=== PATIENT | female | born 1960 | race Caucasian/White ===

== ENCOUNTER → 2016-08-29 | Outpatient (CLI) | payer BC ==
--- NOTE | 2016-08-31 08:00 | Diagnostic Imaging Report ---
Bilateral screening mammogram. The current study was also evaluated with a Computer Aided Detection (CAD) system. INDICATION: Screening. No current complaints stated on the questionnaire. COMPARISON: 08/24/2015. FINDINGS: The breasts are composed of scattered fibroglandular densities. There is a 1-cm focal asymmetry with lobulated margins in the medial upper aspect of the right breast. The left breast demonstrates no change. Occasional benign-appearing calcifications are noted. IMPRESSION: Lobulated 1-cm focal asymmetry in the medial upper aspect of the right breast could be a cyst. Better evaluation with focal compression view and ultrasound is recommended. ACR BI-RADS Category 0: Incomplete. (Needs additional imaging evaluation). Result letter will be mailed to the patient. Note: At least 10% of breast cancer is not imaged by mammography. Dictated by: Dictated on workstation # [id number]
== END ==
LOC: RAD 10:46
PROVIDERS: ATTEND Obstetrics & Gynecology
DX: Z12.31 Encounter for screening mammogram for malignant neoplasm of breast (principal)
CPT/HCPCS: 77067

== ENCOUNTER → 2016-09-10 | Outpatient (CLI) | payer BC ==
--- NOTE | 2016-09-10 09:13 | Diagnostic Imaging Report ---
EXAMINATION: Right breast diagnostic mammography with a Computer Aided Detection (CAD) system. INDICATION: Focal asymmetry in the medial upper aspect of the right breast. FINDINGS: Focal compression view confirms a smoothly marginated lesion in the upper medial aspect of the right breast. It measures approximately 1 cm and its circumscribed borders are in favor of a benign etiology. IMPRESSION: An upper right breast slightly medial circumscribed nodule is seen. An ultrasound evaluation is pending. ACR BI-RADS Category 0: Incomplete. (Needs additional imaging evaluation). Result letter will be mailed to the patient. Note: At least 10% of breast cancer is not imaged by mammography. Dictated by: Dictated on workstation # [id number]
--- NOTE | 2016-09-10 09:18 | Diagnostic Imaging Report ---
Right breast ultrasound. INDICATION: Nodule in the upper medial aspect of the right breast. Findings: At 1 o'clock zone, 8 cm from the nipple there is a hypoechoic circumscribed nodule measuring 1 x 0.5 x 1 CM. No internal vascularity is demonstrated with color Doppler. There is no shadowing of significance. No through transmission however is seen. The lesion is wider than tall. No other lesions are noted in the upper outer quadrant. Impression: 1 cm hypoechoic lesion at the 1 o'clock zone 8 cm from the nipple, correlates with the mammographic findings. 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 An ultrasound guided biopsy to confirm could be performed. An acceptable alternative would be to do serial followup exams starting at 6 months interval with ultrasound. The findings and recommendations were discussed with the patient personally just before this dictation. BI-RADS 4A. ACR BI-RADS Category 4A: Low suspicion of malignancy. Result letter will be mailed to the patient. Note: At least 10% of breast cancer is not imaged by mammography. Report was faxed to office of Dr. Morfin by dede at 9:20am. Dictated by: Dictated on workstation # [id number]
== END ==
LOC: RAD 08:27
PROVIDERS: ATTEND Obstetrics & Gynecology
DX: R92.8 Other abnormal and inconclusive findings on diagnostic imaging of breast (principal)

== ENCOUNTER → 2016-09-13 | Outpatient (CLI) | payer BC ==
[~2016-09-13] VITALS: Ht 172.7 cm; Wt 81.6 kg
[~2016-09-13] MED LIST: LIDOCAINE 1% INJ 20 ML (XYLOCAINE) VIAL INJ ONE
[2016-09-13 13:04] VITALS: BP 138/84
--- NOTE | 2016-09-13 14:45 | Diagnostic Imaging Report ---
EXAMINATION: Vacuum-assisted ultrasound-guided biopsy of breast mass right breast nodule. A metallic clip placed to guzman biopsy site. INDICATION: Right breast mass. CONSENT: Informed consent was obtained from the patient. The risks, benefits, potential complications and alternatives were reviewed and all questions answered to the patient's satisfaction. FINDINGS: Ultrasound images demonstrate right breast mass. PROCEDURE: After sterile preparation and draping, 1% lidocaine was utilized for local anesthesia. A vacuum-assisted biopsy device with 14-gauge needle was introduced under live ultrasound guidance into the lesion. Good needle position was documented with ultrasound images. A metallic clip was placed to guzman the site of the biopsy. A subsequent mammogram is performed and confirms the proper positioning of the clip. Multiple samples were obtained and sent to pathology. The patient tolerated the procedure well with no immediate complications. IMPRESSION: Successful ultrasound-guided biopsy of right breast mass at 1:00 zone. A metallic clip placed to guzman biopsy site. Dictated by: Dictated on workstation # [id number]
--- NOTE | 2016-09-13 20:58 | Diagnostic Imaging Report ---
CC and lateral projections of a mammogram are performed in the right breast. INDICATION: Documentation of clip position after ultrasound-guided biopsy and correlating the ultrasound the mammographic findings. FINDINGS: There is matching abnormality indicated by the biopsy clip which projects less than a centimeter lateral to the medial right breast nodule seen by mammography with post biopsy changes immediately adjacent to the location of the nodule suggestive of slight lateral migration of the biopsy clip. IMPRESSION: The biopsy clip projects slightly lateral to the medial breast nodule of interest. Pathology results are pending. ACR BI-RADS Category 4A: Low suspicion of malignancy. Result letter will be mailed to the patient. Note: At least 10% of breast cancer is not imaged by mammography. Dictated by: Dictated on workstation # [id number]
== END ==
LOC: RAD 12:37
PROVIDERS: ATTEND Obstetrics & Gynecology
DX: D24.1 Benign neoplasm of right breast (principal)
CPT/HCPCS: 19083; 88305

== ENCOUNTER → 2017-09-11 | Outpatient (CLI) | payer BC, OTHER ==
--- NOTE | 2017-09-11 11:11 | Diagnostic Imaging Report ---
INDICATION: Routine screening. COMPARISON: 08/29/2016 and 08/24/2015. TECHNIQUE: Screening digital mammography was performed bilaterally with a Computer Aided Detection (CAD) system. FINDINGS: Marked parenchymal heterogeneity and increased density are identified in both breasts, limiting the sensitivity of mammography. The focal density in the medial right breast at mid depth appears stable. There is a biopsy clip slightly anterior and slightly lateral to the lesion. No new mass or malignant appearing microcalcifications are seen. The axillae are unremarkable. IMPRESSION: Stable bilateral mammograms with no mammographic features suspicious for malignancy. ACR BI-RADS Category 2: Benign findings. Result letter will be mailed to the patient. Note: At least 10% of breast cancer is not imaged by mammography. Dictated by: Dictated on workstation # [id number]
== END ==
LOC: RAD 10:06
PROVIDERS: ATTEND Obstetrics & Gynecology
DX: Z12.31 Encounter for screening mammogram for malignant neoplasm of breast (principal)
CPT/HCPCS: 77067

== ENCOUNTER → 2018-09-16 | Outpatient (CLI) | payer OTHER ==
--- NOTE | 2018-09-16 18:01 | Diagnostic Imaging Report ---
INDICATION: Routine screening. Correlation is made with prior mammograms from 09/11/2017 and 08/29/2016. 2-D and 3-D bilateral screening mammography was performed with Computer-Aided Detection (CAD) system. FINDINGS: Both breasts are heterogeneously dense, limiting the sensitivity of mammography. Nodular density in medial right breast with adjacent biopsy clip is again noted and appears stable. No new mass or malignant-appearing microcalcifications are seen. The axillae are unremarkable. IMPRESSION: No mammographic features suspicious for malignancy are identified. ACR BI-RADS Category 2: Benign findings. Result letter will be mailed to the patient. Note: At least 10% of breast cancer is not imaged by mammography. Dictated by: Dictated on workstation # [id number]
== END ==
LOC: RAD 09-12 14:23
PROVIDERS: ATTEND Obstetrics & Gynecology
DX: Z12.31 Encounter for screening mammogram for malignant neoplasm of breast (principal)
CPT/HCPCS: 77067

== ENCOUNTER → 2019-11-13 | Outpatient (CLI) | payer OTHER ==
--- NOTE | 2019-11-13 11:44 | Diagnostic Imaging Report ---
INDICATION: Routine screening. Comparison is made with prior mammogram from 09/16/2018 and 09/11/2017. 2-D and 3-D bilateral screening mammography was performed with CAD. Both breasts are heterogeneously dense, limiting the sensitivity of mammography. Medial right breast nodular density is stable. Biopsy clip in the upper inner right breast is again noted. Left breast is stable. No new mass or malignant appearing microcalcifications are seen. There are benign calcifications. Axillae are unremarkable. IMPRESSION: BI-RADS Category 2 No mammographic features suspicious for malignancy are identified. ACR BI-RADS Category 2: Benign findings. Result letter will be mailed to the patient. Note: At least 10% of breast cancer is not imaged by mammography. Dictated by: Dictated on workstation # [id number]
== END ==
LOC: RAD 09:47
PROVIDERS: ATTEND Obstetrics & Gynecology
DX: Z12.31 Encounter for screening mammogram for malignant neoplasm of breast (principal); Z98.890 Other specified postprocedural states
CPT/HCPCS: 77063; 77067

== ENCOUNTER → 2020-12-02 | Outpatient (CLI) | payer OTHER ==
--- NOTE | 2020-12-02 12:10 | Diagnostic Imaging Report ---
INDICATION: Routine screening. Comparison is made with prior mammogram from 11/13/2019 and 09/16/2018. 2-D and 3-D bilateral screening mammography was performed with CAD. Both breasts are heterogeneously dense, limiting the sensitivity of mammography. A biopsy clip in the right breast again noted. The nodular density in the central slightly medial right breast appears stable. No spiculated mass or malignant-appearing microcalcifications are seen. There are benign calcifications noted. Axillae are unremarkable. IMPRESSION: BI-RADS Category 2 No mammographic features suspicious for malignancy are identified. ACR BI-RADS Category 2: Benign findings. Result letter will be mailed to the patient. Note: At least 10% of breast cancer is not imaged by mammography. Dictated by: Dictated on workstation # [id number]
== END ==
LOC: RAD 09:45
PROVIDERS: ATTEND Obstetrics & Gynecology
DX: Z12.31 Encounter for screening mammogram for malignant neoplasm of breast (principal)
CPT/HCPCS: 77063; 77067

== ENCOUNTER → 2022-12-05 | Outpatient (CLI) | payer BC ==
--- NOTE | 2022-12-05 13:03 | Diagnostic Imaging Report ---
Indication: Routine screening. Comparison is made with prior mammogram from 12/02/2020 and 09/16/2018. 2-D and 3-D bilateral screening mammography was performed with CAD. The current study was also evaluated with a Computer Aided Detection (CAD) system. Both breasts are heterogeneously dense, limiting the sensitivity of mammography. Nodular density in the medial right breast is stable. Adjacent biopsy clips noted. There are additional smaller nodules in the right breast which also appears stable. There are scattered benign-appearing calcifications. No malignant-appearing microcalcifications are seen. Axillae are unremarkable. IMPRESSION: BI-RADS Category 2 No mammographic features suspicious for malignancy are identified. ACR BI-RADS Category 2: Benign findings. Result letter will be mailed to the patient. Note: At least 10% of breast cancer is not imaged by mammography. Dictated by: Dictated on workstation # [id number]
== END ==
LOC: RAD 10:33
PROVIDERS: ATTEND Obstetrics & Gynecology
DX: Z12.31 Encounter for screening mammogram for malignant neoplasm of breast (principal)
CPT/HCPCS: 77063; 77067